=== PATIENT | male | born 1990 | race Two or more races ===

== ENCOUNTER 2022-10-01 20:27 | Emergency (ER) | payer OTHER ==
[~2022-10-01] VITALS: Ht 177.8 cm; Wt 102.0 kg
[2022-10-01 21:01] VITALS: BP 108/65
[2022-10-01 22:30] LABS: Basophils # (auto) 0.1 10 ^3/uL (0-0.2); Basophils % (auto) 1.2 % (0.0-2.0); Eosinophils # (auto) 0.2 10 ^3/uL (0-0.8); Eosinophils % (auto) 3.5 % (0.0-7.0); Hematocrit 43.7 % (41.0-53.0); Hemoglobin 14.8 g/dL (13.5-17.5); Lymphocytes # (auto) 2.1 10 ^3/uL (0.4-5.4); Lymphocytes % (auto) 31.4 % (10.0-50.0); Mean Corpuscular Hemoglobin 30.9 pg (28.0-32.0); Mean Corpuscular Hgb Conc. 33.9 g/dL (32.0-36.0); Mean Corpuscular Volume 91.1 fL (80.0-100.0); Monocytes # (auto) 0.7 10 ^3/uL (0-1.3); Monocytes % (auto) 9.9 % (0.0-12.0); Neutrophils # (auto) 3.7 10 ^3/uL (1.6-8.6); Red Cell Distribution Width 12.6 % (11.8-14.3); White Blood Cell 6.8 10^3/uL (4.4-10.8)
[2022-10-01 22:52] LABS: Albumin 3.8 g/dL (3.4-5.0); Calcium 9.1 mg/dL (8.5-10.1); Potassium 3.9 mmol/L (3.5-5.1)
[2022-10-01 22:53] LABS: BUN/Creatinine Ratio 14.9
[2022-10-01 22:56] LABS: Bilirubin, Total 0.7 mg/dL (0.2-1.0)
[2022-10-01] MEDS ORDERED: AZITTAB PO (23:59)
[2022-10-01] MEDS ORDERED: BENZ100C19 PO (23:59)
[2022-10-01] MEDS ORDERED: METH4PAK PO (23:59)
== END 2022-10-02 00:18 | disposition home or self-care (01) ==
LOC: ER 20:32
DX: U07.1 COVID-19 (principal); J40 Bronchitis, not specified as acute or chronic; M94.0 Chondrocostal junction syndrome [Tietze]
CPT/HCPCS: 36415; 71045; 80053; 84484; 85025; 93005

== ENCOUNTER → 2023-05-28 | Emergency (ER) | payer SELFPAY ==
[~2023-05-28] VITALS: Ht 177.8 cm; Wt 132.3 kg
[~2023-05-28] MED LIST: ALBU108A5 IN; AUG875T PO; AZIT-43 PO; AZITTAB PO; BENZ100C19 PO; METH4PAK PO; TETANUS-DIPTH-ACEL PERTUSSIS 0.5ML SYR Tdap IM ONE
[2023-05-28 21:03] VITALS: BP 117/72
== END | disposition home or self-care (01) ==
LOC: ER 17:30
DX: S71.152A Open bite, left thigh, initial encounter (principal); Z79.899 Other long term (current) drug therapy; W54.0XXA Bitten by dog, initial encounter; Y93.89 Activity, other specified; Y92.89 Other specified places as the place of occurrence of the external cause; Y99.8 Other external cause status
CPT/HCPCS: 90471; 90715